=== PATIENT | female | born 1990 | race Asian ===

== ENCOUNTER 2022-06-19 12:24 | Emergency (ER) | payer MEDICAID ==
[~2022-06-19] VITALS: Ht 147.3 cm; Wt 83.7 kg
[2022-06-19 13:11] VITALS: BP 142/101
[2022-06-19] MEDS ORDERED: ACET-1080 PO (13:19)
[2022-06-19] MEDS ORDERED: CLIN300C8 PO (13:19)
== END 2022-06-19 13:42 | disposition home or self-care (01) ==
LOC: ER 12:24
DX: K04.7 Periapical abscess without sinus (principal); Z79.2 Long term (current) use of antibiotics; Z79.899 Other long term (current) drug therapy; Z88.2 Allergy status to sulfonamides

== ENCOUNTER 2023-06-07 21:15 | Inpatient (IN) | payer MEDICAID ==
[~2023-06-07] VITALS: Ht 147.3 cm; Wt 81.0 kg
[~2023-06-07 21:15] MED LIST: ACET-1080 PO; ACET500T58 PO; AUG875T PO; BENZ100C19 PO; CLIN300C70 PO; IBUP-1454 PO; LORA-483 GT; PREN-96 PO
[2023-06-07] MEDS ORDERED: ACETAMINOPHEN 325 MG TAB PO ONE (22:00)
[2023-06-07 22:09] LABS: Basophils # (auto) 0.1 10 ^3/uL (0-0.2); Basophils % (auto) 0.4 % (0.0-2.0); Eosinophils # (auto) 0.1 10 ^3/uL (0-0.8); Eosinophils % (auto) 0.2 % (0.0-7.0); Hematocrit 40.3 % (36.0-46.0); Hemoglobin 13.9 g/dL (12.2-16.2); Lymphocytes # (auto) 3.4 10 ^3/uL (0.4-5.4); Lymphocytes % (auto) 15.1 % (10.0-50.0); Mean Corpuscular Hemoglobin 28.9 pg (28.0-32.0); Mean Corpuscular Hgb Conc. 34.5 g/dL (32.0-36.0); Mean Corpuscular Volume 83.7 fL (80.0-100.0); Monocytes % (auto) 4.6 % (0.0-12.0); Neutrophils # (auto) 17.9 10 ^3/uL (1.6-8.6); Neutrophils % (auto) 79.7 % (37.0-80.0); Red Blood Cells 4.82 10^6/uL (4.0-5.20); Red Cell Distribution Width 13.7 % (11.8-14.3); White Blood Cell 22.5 10^3/uL (4.4-10.8)
[2023-06-07 22:27] LABS: Alanine Aminotransferase 19 U/L (7-40); Albumin 4.6 g/dL (3.2-4.8); Alkaline Phosphatase 115 U/L (46-116); Anion Gap 8 (5-15); Aspartate Aminotransferase 16 U/L (13-40); BUN/Creatinine Ratio 11.6 (10.0-20.0); Bilirubin, Total 0.8 mg/dL (0.2-1.0); Blood Urea Nitrogen 10 mg/dL (9-23); Calcium 9.6 mg/dL (8.5-10.1); Carbon Dioxide 26 mmol/L (20-30); Chloride 103 mmol/L (98-107); Glucose 113 mg/dL (74-106); Potassium 3.8 mmol/L (3.5-5.1); Sodium 137 mmol/L (136-145); Total Protein 7.9 g/dL (5.7-8.2)
[2023-06-08 00:22] LABS: Urine Bacteria NONE SEEN /hpf (None Seen); Urine Blood Negative /uL (Negative); Urine Clarity Clear (Clear); Urine Color Colorless (Yellow); Urine Protein, UAD Negative (Negative); Urine Specific Gravity 1.012 (1.001-1.035); Urine Urobilinogen Normal (Negative); Urine WBC 3 /hpf (0 - 5); Urine pH 5.5 (5.0-8.0)
[2023-06-08] MEDS ORDERED: PANTOPRAZOLE 40 MG/10 ML VIAL INJ IV ONE (02:30)
[2023-06-08] MEDS ORDERED: ONDANSETRON HCL 4 MG/2 ML VIAL IV ONE (02:30)
[2023-06-08] MEDS ORDERED: CEFTRIAXONE SODIUM 2 GM in D5W 5% 100 ML IV ONE (02:30)
[2023-06-08] MEDS ORDERED: MORPHINE SULFATE 4 MG/ML SYR/VIAL IV ONE (02:30)
[2023-06-08] MEDS ORDERED: SODIUM CHLORIDE 0.9% 2,000 ML IV ONE (02:30)
[2023-06-08 05:20] VITALS: PULSE 83; RESP 18; O2SAT 98
[2023-06-08] MEDS ORDERED: cefTRIAXone 1GM/50ML D5W 50 ML IV ONE ×2 (05:30)
[2023-06-08 06:02] VITALS: RESP 20
[2023-06-08 07:45] VITALS: BP 109/66; PULSE 79; TEMP 97.6; O2SAT 96
[2023-06-08] MEDS ORDERED: HYDROcodone-ACET 5/325MG TAB PO PRN (09:00)
[2023-06-08] MEDS ORDERED: SODIUM CHLORIDE 0.9% 1,000 ML IV SCH (09:00)
[2023-06-08] MEDS ORDERED: DEXTROSE (50%) 50ML SYRG IV PRN (09:00)
[2023-06-08] MEDS ORDERED: ACETAMINOPHEN 325 MG TAB PO PRN (09:00)
[2023-06-08] MEDS ORDERED: cefTRIAXone 1GM/50ML D5W 50 ML IV SCH (09:00)
[2023-06-08] MEDS ORDERED: PANTOPRAZOLE 40 MG/10 ML VIAL INJ IV SCH (10:00)
[2023-06-08 11:00] LABS: Triglycerides 132 mg/dL (< 150)
[2023-06-08 11:01] LABS: LDL Cholesterol 87 mg/dL (< 100)
[2023-06-08 11:02] LABS: Cholesterol 140 mg/dL (< 200); HDL Cholesterol 43 mg/dL (40-59)
[2023-06-08] MEDS ORDERED: ACCU-CHEK COMFORT CURVE STRIP VI SCH (11:30)
[2023-06-08] MEDS ORDERED: InsuLIN REG 1unit/0.01ml Soln (100units/ml) SC SCH (11:30)
[2023-06-09] MEDS ORDERED: cefTRIAXone 1GM/50ML D5W 50 ML IV SCH (09:00)
== END 2023-06-09 00:50 | disposition left against medical advice (07) | DRG 463 ==
LOC: ER 21:15 → OVERFLOW 06-08 08:57
PROVIDERS: ADMIT Nurse Practitioner Family; ATTEND Nurse Practitioner Family
DX: N30.00 Acute cystitis without hematuria (principal); E66.01 Morbid (severe) obesity due to excess calories; K80.20 Calculus of gallbladder without cholecystitis without obstruction; Z68.37 Body mass index [BMI] 37.0-37.9, adult; Z88.2 Allergy status to sulfonamides
CPT/HCPCS: 36415; 76705; 76830; 76856; 80053; 80061; 81001; 81025; 83036; 83605; 84443; 85025; 87040; 96365; 96375; C9113; G0378; J0696; J2405; J7060